=== PATIENT | female | born 1990 | race Two or more races ===

== ENCOUNTER 2023-07-01 09:36 | Emergency (ER) | payer OTHER ==
[~2023-07-01] VITALS: Ht 157.5 cm; Wt 107.0 kg
== END 2023-07-01 12:46 | disposition home or self-care (01) ==
LOC: ER 09:36
DX: J06.9 Acute upper respiratory infection, unspecified (principal); Z3A.18 18 weeks gestation of pregnancy; Z20.822 Contact with and (suspected) exposure to COVID-19

== ENCOUNTER → 2023-09-19 | Emergency (ER) | payer OTHER ==
[~2023-09-19] VITALS: Ht 157.5 cm; Wt 112.0 kg
[~2023-09-19] MED LIST: IBUPROFEN800 MG PO; NIFEDIPINE ER30 M1 PO; PRENA1 CHEW TA1.4 MG
== END | disposition still patient (30) ==
LOC: ER 14:12
DX: O44.13 Complete placenta previa with hemorrhage, third trimester (principal); Z3A.29 29 weeks gestation of pregnancy

== ENCOUNTER 2023-11-01 02:21 | Inpatient (IN) | payer OTHER ==
[~2023-11-01] VITALS: Ht 160 cm; Wt 123.8 kg
[~2023-11-01 02:21] MED LIST changes: +AMPICILLIN SODIUM 2,000 MG VIAL ONE; +CHLORHEXIDINE GLUCONATE 120 ML BOTTLE TOP ONE; +ERYTHROMYCIN BASE 1 GM TUBE OP ONE; -IBUPROFEN800 MG PO; +LIDOCAINE HCL 1% 10ML VIAL ONE; +OXYTOCIN 20 UNITS/1000ML RL PIGGYBAG IV ONE
[2023-11-01] MEDS ORDERED: AMPICILLIN SODIUM 2,000 MG VIAL IV STA (02:32)
[2023-11-01] MEDS ORDERED: RINGERS SOLUTION,LACTATED 1,000 ML IV SCH (02:45)
[2023-11-01] MEDS ORDERED: LIDOCAINE HCL 1% 10ML VIAL ONE (03:11)
[2023-11-01] MEDS ORDERED: CARBOPROST TROMETHAMINE 250 MCG/ML AMPUL IM ONE (03:35)
[2023-11-01] MEDS ORDERED: ERYTHROMYCIN BASE 1 GM TUBE OP ONE (04:00)
[2023-11-01] MEDS ORDERED: OXYTOCIN 20 UNITS/1000ML RL PIGGYBAG IV ONE (04:00)
[2023-11-01] MEDS ORDERED: OxyCODONE HCL/APAP UD (PERCOCET) PO PRN (04:00)
[2023-11-01] MEDS ORDERED: LIDOCAINE HCL 1% 2ML VIAL IJ ONE (04:00)
[2023-11-01] MEDS ORDERED: ACETAMINOPHEN 325 MG TABLET PO PRN (04:00)
[2023-11-01] MEDS ORDERED: CHLORHEXIDINE GLUCONATE 120 ML BOTTLE TOP ONE (04:00)
[2023-11-01 04:01] LABS: HEMATOCRIT 33.5 % (36.0-45.00); HEMOGLOBIN 11.4 g/dL (12.0-15.00); MEAN CELL VOLUME 73.8 fL (80.00-100.00); MEAN CORPUSCULAR HEMOGLOBIN 25.2 pg (27.00-32.0); MEAN CORPUSCULAR HGB CONC 34.1 g/dl (32.0-36.0); PLATELET COUNT 192 K/uL (150-450); RED BLOOD COUNT 4.54 M/uL (4.00-6.00)
[2023-11-01] MEDS ORDERED: CARBOPROST TROMETHAMINE 250 MCG/ML AMPUL IM STA (04:07)
[2023-11-01 04:13] LABS: INR 0.95; PARTIAL THROMBOPLASTIN TIME 29.6 SECONDS (22.0-34.0)
[2023-11-01 04:18] LABS: ALBUMIN 2.6 gm/dL (3.4-5.0); BILIRUBIN TOTAL 0.33 mg/dL (0.3-1.2); CREATININE SERUM 0.57 mg/dL (0.55-1.02); GFR 123.71; GLOBULINA 3.5 G/DL (2.4-3.5); POTASSIUM 3.87 mEq/L (3.5-5.1); TOTAL PROTEIN 6.1 gm/dL (6.4-8.2)
[2023-11-01] MEDS ORDERED: BENZOCAINE/MENTHOL 90 ML BOTTLE TOP SCH (09:00)
[2023-11-01] MEDS ORDERED: DOCUSATE SODIUM 100MG CAP PO SCH (09:00)
[2023-11-01] MEDS ORDERED: HYDROCORTISONE 2.5% 30 GM TUBE RECTAL SCH (09:00)
[2023-11-01 13:05] LABS: HEMATOCRIT 27.2 % (36.0-45.00); MEAN CELL VOLUME 74.5 fL (80.00-100.00); MEAN CORPUSCULAR HGB CONC 33.6 g/dl (32.0-36.0); PLATELET COUNT 181 K/uL (150-450); RED BLOOD COUNT 3.65 M/uL (4.00-6.00); RED CELL DISTRIBUTION WIDTH 21.1 % (11.5-14.5)
[2023-11-01 13:18] LABS: MEAN CORPUSCULAR HEMOGLOBIN 24.9 pg (27.00-32.0)
[2023-11-01 13:19] LABS: HEMOGLOBIN 9.1 g/dL (12.0-15.00)
[2023-11-02] MEDS ORDERED: FERROUS SULFATE 325 MG TABLET.EC PO SCH (09:00)
[2023-11-03] MEDS ORDERED: IBUPROFEN800 MG PO (06:26)
== END 2023-11-03 13:48 | disposition home or self-care (01) | DRG 806 ==
LOC: LDR 02:21 → OB/GYN 02:21
PROVIDERS: ADMIT Specialist; ATTEND Specialist
PROC: 10E0XZZ Delivery of Products of Conception, External Approach (ICD-10-PCS; principal; 2023-11-01)
PROC: 0HQ9XZZ Repair Perineum Skin, External Approach (ICD-10-PCS; 2023-11-01)
PROC: 4A1HXCZ Monitoring of Products of Conception, Cardiac Rate, External Approach (ICD-10-PCS; 2023-11-01)
DX: O70.0 First degree perineal laceration during delivery (principal); O26.873 Cervical shortening, third trimester; Z37.0 Single live birth; Z3A.36 36 weeks gestation of pregnancy; Z20.822 Contact with and (suspected) exposure to COVID-19